=== PATIENT | male | born 1955 | race Caucasian/White ===

== ENCOUNTER 2019-06-06 15:24 | Emergency (ER) | payer OTHER ==
[2019-06-06] MEDS ORDERED: predniSONE 20 MG TAB ONE (18:14)
[2019-06-06] MEDS ORDERED: KETOROLAC 30 MG/ML INJ ONE (18:14)
[2019-06-06] MEDS ORDERED: ONDANSETRON 4 MG (ODT) TAB ONE (18:14)
[2019-06-06] MEDS ORDERED: MORPHINE 4 MG/ML SYR ONE (18:14)
--- NOTE | 2019-06-06 19:00 | ER ---
Nurse's Notes [facility] Name: Diana Collins Age: 63 yrs Sex: Male : 1955 Arrival Date: 06/06/2019 Time: 15:30 Bed 20 Private MD: Diagnosis: Other chronic pain;Pain in left knee;Pain in right knee;Pain in left shoulder;Pain in left elbow Presentation: 06/05 15:36 Chief complaint: Patient states: bilateral knee pain, R shoulder and L elbow pain that ss began months ago, has gotten much worse recently. Coronavirus screen: The patient has NOT traveled to a country currently being monitored by the [facility] within the last 14 days. Proceed with normal triage procedures. Ebola Screen: Patient denies exposure to infectious person. Patient denies travel to an Ebola-affected area in the 21 days before illness onset. Initial Sepsis Screen: Does the patient meet any 2 criteria? No. Patient's initial sepsis screen is negative. Does the patient have a suspected source of infection? No. Patient's initial sepsis screen is negative. Risk Assessment: Do you want to hurt yourself or someone else? Patient reports no desire to harm self or others. 15:36 Method Of Arrival: Ambulatory ss 15:36 Acuity: TVEIN 4 ss Historical: - Allergies: 15:38 Demerol; ss - Immunization history:: Adult Immunizations up to date. - Social history:: Smoking status: Patient denies any tobacco usage or history of. Screenin:30 Abuse screen: Denies threats or abuse. Denies injuries from another. Nutritional jl7 screening: No deficits noted. Tuberculosis screening: No symptoms or risk factors identified. Fall Risk Ambulatory Aid- Crutches/Cane/Walker (15 pts). Total Jones Fall Scale indicates No Risk (0-24 pts). Assessment: 17:30 General: Appears in no apparent distress. uncomfortable, Behavior is calm, cooperative, jl7 appropriate for age. Pain: Complains of pain in [place] knees, hips. Neuro: Level of Consciousness is awake, alert, obeys commands, Oriented to person, place, time, situation. Cardiovascular: Patient's skin is warm and dry. Respiratory: Airway is patent Respiratory effort is even, unlabored, Respiratory pattern is regular, symmetrical. Derm: Skin is pink, warm \T\ dry. Vital Signs: 15:36 BP 119 / 51; Pulse 86; Resp 16; Temp 97.5(TE); Pulse Ox 97% on R/A; Weight 156.49 kg; ss Height 6 ft. 2 in. (187.96 cm); Pain 7/10; 15:36 Body Mass Index 44.29 (156.49 kg, 187.96 cm) ED Course: 15:30 Patient arrived in ED. mr 15:37 Triage completed. ss 15:38 Arm band placed on right wrist. ss 16:49 Juan Chaudhary, SIVA is PHCP. pm1 16:49 Alonso Resendiz MD is Attending Physician. pm1 17:30 Patient has correct armband on for positive identification. Bed in low position. Call jl7 light in reach. Side rails up X 1. 18:06 Cynthia Gonzalez RN is Primary Nurse. jl7 19:17 No provider procedures requiring assistance completed. Patient did not have IV access jl7 during this emergency room visit. Administered Medications: 18:10 Drug: Ondansetron (Zofran) 4 mg Route: PO; jl7 19:15 Follow up: Response: No adverse reaction jl7 18:10 Drug: predniSONE 40 mg Route: PO; jl7 18:45 Follow up: Response: No adverse reaction; Pain is decreased jl7 18:12 Drug: morphine 4 mg Route: IM; Site: right deltoid; jl7 18:45 Follow up: Response: No adverse reaction; Pain is decreased jl7 18:15 Drug: TORadol 60 mg Route: IM; Site: left ventrogluteal; jl7 18:45 Follow up: Response: No adverse reaction; Pain is decreased jl7 Outcome: 18:59 Discharge ordered by . pm1 19:17 Discharged to home ambulatory. jl7 19:17 Condition: stable 19:17 Discharge instructions given to patient, Instructed on discharge instructions, follow up and referral plans. medication usage, Demonstrated understanding of instructions, follow-up care, medications, Prescriptions given X 1. 19:17 Patient left the ED. jl7 Signatures: Abril AlegreTila RN RN Juan Chaudhary, RECTIFYING OPERATOR RECTIFYING OPERATOR pm1 Cynthia Gonzalez RN RN jl7
--- NOTE | 2019-06-06 19:00 | EDPHYS ---
Physician Documentation [facility] Name: Diana Collins Age: 63 yrs Sex: Male : 1955 Arrival Date: 06/06/2019 Time: 15:30 Bed 20 Private MD: ED Physician Alonso Resendiz HPI: 06/05 17:59 This 63 yrs old Male presents to ER via Ambulatory with complaints of Left pm1 Shoulder Pain, Bilateral Knee Pain, Left Elbow pain. 17:59 The patient or guardian complains of pain, that is chronic. Onset: The symptoms/episode pm1 began/occurred Knee pain present for many years from arthritis, left shoulder present for many months that is due to torn rotator cuff that has not been repaired, and left elbow pain that is compensating for left torn rotator cuff while using walker. Modifying factors: the symptoms are alleviated by Aspirin, but PCP does not want him taking it, The symptoms are aggravated by movement, weight bearing. Associated signs and symptoms: Pertinent negatives: abdominal pain, chest pain, shortness of breath, numbness and tingling to extermities. Severity of symptoms: in the emergency department the symptoms are actually worse. Treatment prior to arrival includes: patient has hydrocodone at home but does not like to take it due to side effects such as constipation. He has not taken anything for his current pain. Historical: - Allergies: 15:38 Demerol; ss - Immunization history:: Adult Immunizations up to date. - Social history:: Smoking status: Patient denies any tobacco usage or history of. ROS: 17:59 Constitutional: Negative for fever, chills, and weight loss, Neck: Negative for injury, pm1 pain, and swelling, Cardiovascular: Negative for chest pain, palpitations, and edema, Respiratory: Negative for shortness of breath, cough, wheezing, and pleuritic chest pain, Abdomen/GI: Negative for abdominal pain, nausea, vomiting, diarrhea, and constipation, Back: Negative for injury and pain. 17:59 Skin: Negative for injury, rash, and discoloration, Neuro: Negative for headache, weakness, numbness, tingling, and seizure. 17:59 MS/extremity: Positive for pain, of the right knee, left knee, left elbow, and left shoulder, Negative for decreased range of motion, deformity. Exam: 17:59 Constitutional: This is a well developed, well nourished patient who is awake, alert, pm1 and in no acute distress. Head/Face: Normocephalic, atraumatic. Neck: Trachea midline, no thyromegaly or masses palpated, and no cervical lymphadenopathy. Supple, full range of motion without nuchal rigidity, or vertebral point tenderness. No Meningismus. Chest/axilla: Normal chest wall appearance and motion. Nontender with no deformity. No lesions are appreciated. Cardiovascular: Regular rate and rhythm with a normal S1 and S2. No gallops, murmurs, or rubs. Normal PMI, no JVD. No pulse deficits. Respiratory: Lungs have equal breath sounds bilaterally, clear to auscultation and percussion. No rales, rhonchi or wheezes noted. No increased work of breathing, no retractions or nasal flaring. Abdomen/GI: Soft, non-tender, with normal bowel sounds. No distension or tympany. No guarding or rebound. No evidence of tenderness throughout. Back: No spinal tenderness. No costovertebral tenderness. Full range of motion. Skin: Warm, dry with normal turgor. Normal color with no rashes, no lesions, and no evidence of cellulitis. 17:59 Musculoskeletal/extremity: Extremities: grossly normal except: noted in the anterior aspect of left shoulder: tenderness, noted in the left elbow: tenderness, noted in the left knee: tenderness, Noted in right knee: tenderness. 17:59 Neuro: Orientation: is normal, Motor: is normal, moves all fours. Vital Signs: 15:36 BP 119 / 51; Pulse 86; Resp 16; Temp 97.5(TE); Pulse Ox 97% on R/A; Weight 156.49 kg; ss Height 6 ft. 2 in. (187.96 cm); Pain 7/10; 15:36 Body Mass Index 44.29 (156.49 kg, 187.96 cm) ss MDM: 16:49 Patient medically screened. jarod 18:37 Data reviewed: vital signs. Data interpreted: Pulse oximetry: on room air is 97 %. pm1 Interpretation: normal. Counseling: I had a detailed discussion with the patient and/or guardian regarding: the historical points, exam findings, and any diagnostic results supporting the discharge/admit diagnosis, the need for outpatient follow up, to return to the emergency department if symptoms worsen or persist or if there are any questions or concerns that arise at home. Administered Medications: 18:10 Drug: Ondansetron (Zofran) 4 mg Route: PO; jl7 19:15 Follow up: Response: No adverse reaction jl7 18:10 Drug: predniSONE 40 mg Route: PO; jl7 18:45 Follow up: Response: No adverse reaction; Pain is decreased jl7 18:12 Drug: morphine 4 mg Route: IM; Site: right deltoid; jl7 18:45 Follow up: Response: No adverse reaction; Pain is decreased jl7 18:15 Drug: TORadol 60 mg Route: IM; Site: left ventrogluteal; jl7 18:45 Follow up: Response: No adverse reaction; Pain is decreased jl7 Disposition: 06/06/19 18:59 Discharged to Home. Impression: Other chronic pain, Pain in left knee, Pain in right knee, Pain in left shoulder, Pain in left elbow. - Condition is Stable. - Discharge Instructions: Joint Pain, Arthritis, Chronic Pain, Musculoskeletal Pain. - Prescriptions for Medrol (Esteban) 4 mg Oral Tablets, Dose Pack - take 1 tablet by ORAL route as directed - follow package instructions; 1 packet. - Medication Reconciliation Form, Thank You Letter, Antibiotic Education, Prescription Opioid Use form. - Follow up: Emergency Department; When: As needed; Reason: Worsening of condition. Follow up: Private Physician; When: 2 - 3 days; Reason: Recheck today's complaints, Continuance of care, Re-evaluation by your physician. - Problem is new. - Symptoms have improved. Addendum: 06/08/2019 09:24 Co-signature as Attending Physician, Alonso Resendiz MD I agree with the assessment and c clemons plan of care. Signatures: Alonso Resendiz MD MD cha Smirch, Shelby, RN RN ss Juan Chaudhary, SIVA NEWSP[employer]ER CLIPPER pm1 Cynthia Gonzalez RN RN jl7 Corrections: (The following items were deleted from the chart) 06/05 19:17 18:59 06/06/2019 18:59 Discharged to Home. Impression: Other chronic pain; Pain in left jl7 knee; Pain in right knee; Pain in left shoulder; Pain in left elbow. Condition is Stable. Forms are Medication Reconciliation Form, Thank You Letter, Antibiotic Education, Prescription Opioid Use. Follow up: Emergency Department; When: As needed; Reason: Worsening of condition. Follow up: Private Physician; When: 2 - 3 days; Reason: Recheck today's complaints, Continuance of care, Re-evaluation by your physician. Problem is new. Symptoms have improved. pm1
[2019-06-06 19:22] VITALS: BP 119/51; TEMP 97.5; O2SAT 97
== END 2019-06-06 19:17 | disposition home or self-care (01) ==
LOC: ER 15:24
DX: M25.512 Pain in left shoulder (principal); M25.562 Pain in left knee; M25.561 Pain in right knee; M25.522 Pain in left elbow; G89.29 Other chronic pain
CPT/HCPCS: 96372; 99283; J7512

== ENCOUNTER 2019-06-16 19:39 | Emergency (ER) | payer OTHER ==
--- NOTE | 2019-06-16 21:15 | RAD REPORT ---
EXAM DESCRIPTION: RAD - Knee Right 3 View - 06/16/2019 9:02 pm CLINICAL HISTORY: Right knee pain status post injury FINDINGS: No fracture or dislocation is seen. Marked osteoarthritis involves the knee consisting joint space narrowing, subchondral sclerosis and o steophytes. Moderate joint effusion suspected Mild lateral subluxation of the tibia on the femur
--- NOTE | 2019-06-16 21:25 | ER ---
Nurse's Notes [facility] Name: Diana Collins Age: 63 yrs Sex: Male : 1955 Arrival Date: 06/16/2019 Time: 19:42 Bed 19 Private MD: Diagnosis: Other specified arthritis, right knee Presentation: 06/15 19:58 Chief complaint: Patient states: that he was walking and twisted the wrong way and fc fell. Twisted knee right knee which is now swelling and he is concerned. Also concerned that his blood sugar has been high the past 3 mornings. Care prior to arrival: None. Mechanism of Injury: Fall from standing position. Trauma event details: Injury occurred in the [facility], Injury occurred: at home. Injury occurred: June 16, 2019. 19:58 Acuity: TEVIN 4 19:58 Method Of Arrival: Wheelchair 20:01 Coronavirus screen: Patient denies fever greater than 100.4F, cough, shortness of fc breath, or difficulty breathing. Ebola Screen: Patient negative for fever greater than or equal to 101.5 degrees Fahrenheit, and additional compatible Ebola Virus Disease symptoms Patient denies exposure to infectious person. Patient denies travel to an Ebola-affected area in the 21 days before illness onset. Risk Assessment: Do you want to hurt yourself or someone else? Patient reports no desire to harm self or others. 20:11 Initial Sepsis Screen: Does the patient meet any 2 criteria? HR > 90 bpm. No. Patient's fc initial sepsis screen is negative. Does the patient have a suspected source of infection? No. Patient's initial sepsis screen is negative. 20:59 Onset of symptoms was June 16, 2019 at 15:00. rv Historical: - Allergies: 20:09 Demerol; fc 20:09 asmacort; fc 20:09 Disalcid; fc - Home Meds: 20:09 allopurinol 300 mg Oral tab 1 tab once daily [Active]; lisinopril 5 mg Oral tab 1 tab fc once daily [Active]; atorvastatin 20 mg oral tab 1 tab once daily [Active]; cetirizine 10 mg oral tab 1 tab once daily [Active]; cholecalciferol (vitamin D3) 2,000 unit oral tab daily [Active]; - PMHx: 20:09 Hypertension; High Cholesterol; Elevated uric acid; Septic Arthritis; fc - PSHx: 20:09 left wrist; left foot; Knee surgery; fc - Immunization history: Last tetanus immunization: - up to date. - Social history:: Smoking status: Patient denies any tobacco usage or history of. Patient uses alcohol, on a daily basis. Patient/guardian denies using street drugs. Screenin:58 Abuse screen: Denies threats or abuse. Tuberculosis screening: No symptoms or risk fc factors identified. 21:00 Nutritional screening: No deficits noted. Fall Risk Fall in past 12 months (25 points). rv Secondary diagnosis (15 points) impaired mobility, No IV (0 pts). Ambulatory Aid- None/Bed Rest/Nurse Assist (0 pts). Gait- Impaired (20 pts.). Mental Status- Oriented to own ability (0 pts). Total Jones Fall Scale indicates Low Risk Score (25-44 pts). Fall prevention measures have been instituted. Side Rails Up X 2 Frequent Obs/Assesments occuring As available Patient and Family Educated on Fall Prevention Program and strategies. Assessment: 20:30 General: Appears in no apparent distress. comfortable, Behavior is calm, cooperative. rv 20:30 Pain: Complains of pain in right knee. Neuro: Level of Consciousness is awake, alert, rv obeys commands, Oriented to person, place, time, situation. Cardiovascular: Patient's skin is warm and dry. Respiratory: Airway is patent. Derm: Skin is intact. Musculoskeletal: Swelling absent Tenderness present in right knee Reports pain in right knee. 21:34 Reassessment: Patient appears in no apparent distress at this time. Patient and/or rv family updated on plan of care and expected duration. Pain level reassessed. Patient is alert, oriented x 3, equal unlabored respirations, skin warm/dry/pink. Vital Signs: 20:09 BP 128 / 83; Pulse 106; Resp 18; Temp 98.4(O); Pulse Ox 96% on R/A; Weight 156.49 kg (R); Height 6 ft. 2 in. (187.96 cm) (R); Pain 9/10; 20:09 Body Mass Index 44.29 (156.49 kg, 187.96 cm) [place] Coma Score: 19:58 Eye Response: spontaneous(4). Verbal Response: oriented(5). Motor Response: obeys fc commands(6). Total: 15. Trauma Score (Adult): 19:58 Eye Response: spontaneous(1); Verbal Response: oriented(1); Motor Response: obeys fc commands(2); Systolic BP: > 89 mm Hg(4); Respiratory Rate: 10 to 29 per min(4); [place] Score: 15; Trauma Score: 12 ED Course: 19:42 Patient arrived in ED. cl3 19:58 Patient maintains SpO2 saturation greater than 95% on room air. fc 20:00 Triage completed. fc 20:11 Arm band placed on Patient placed in an exam room, on a stretcher. fc 20:13 Sejal Oleary MD is Attending Physician. ma2 20:20 Domingo Sinha, RN is Primary Nurse. rv 20:58 No provider procedures requiring assistance completed. Patient did not have IV access rv during this emergency room visit. ice pack and minda wrap. 20:59 Patient has correct armband on for positive identification. Pulse ox on. NIBP on. rv 21:02 Knee Right 3 View XRAY In Process Unspecified. EDMS Administered Medications: No medications were administered Outcome: 21:22 Discharge ordered by . ma2 21:34 Discharged to home via wheelchair, with family. rv 21:34 Condition: good 21:34 Discharge instructions given to patient, Instructed on discharge instructions, follow up and referral plans. Demonstrated understanding of instructions, follow-up care. 21:35 Patient left the ED. rv Signatures: Dispatcher [employer] EDMS Kamryn Maxwell RN RN Sejal Oleary MD MD ma2 Vicente, Ronaldo, RN RN rv Lewis, Charde cl3
--- NOTE | 2019-06-16 21:26 | EDPHYS ---
Physician Documentation [facility] Name: Diana Collins Age: 63 yrs Sex: Male : 1955 Arrival Date: 06/16/2019 Time: 19:42 Bed 19 Private MD: ED Physician Sejal Oleary HPI: 06/15 20:52 This 63 yrs old Male presents to ER via Wheelchair with complaints of Fall ma2 Injury, Knee Injury. 20:52 Details of fall: The patient fell from an upright position. Onset: The symptoms/episode ma2 began/occurred suddenly, 2 hour(s) ago. Severity of symptoms: in the emergency department the symptoms have resolved, are actually worse. The patient has experienced similar episodes in the past. Historical: - Allergies: 20:09 Demerol; fc 20:09 asmacort; fc 20:09 Disalcid; fc - Home Meds: 20:09 allopurinol 300 mg Oral tab 1 tab once daily [Active]; lisinopril 5 mg Oral tab 1 tab fc once daily [Active]; atorvastatin 20 mg oral tab 1 tab once daily [Active]; cetirizine 10 mg oral tab 1 tab once daily [Active]; cholecalciferol (vitamin D3) 2,000 unit oral tab daily [Active]; - PMHx: 20:09 Hypertension; High Cholesterol; Elevated uric acid; Septic Arthritis; fc - PSHx: 20:09 left wrist; left foot; Knee surgery; fc - Immunization history: Last tetanus immunization: - up to date. - Social history:: Smoking status: Patient denies any tobacco usage or history of. Patient uses alcohol, on a daily basis. Patient/guardian denies using street drugs. ROS: 20:52 Constitutional: Negative for fever, chills, and weight loss. ma2 20:52 All other systems are negative. Exam: 20:52 Constitutional: This is a well developed, well nourished patient who is awake, alert, ma2 and in no acute distress. Head/Face: Normocephalic, atraumatic. Eyes: Pupils equal round and reactive to light, extra-ocular motions intact. Lids and lashes normal. Conjunctiva and sclera are non-icteric and not injected. Cornea within normal limits. Periorbital areas with no swelling, redness, or edema. ENT: Nares patent. No nasal discharge, no septal abnormalities noted. Tympanic membranes are normal and external auditory canals are clear. Oropharynx with no redness, swelling, or masses, exudates, or evidence of obstruction, uvula midline. Mucous membranes moist. Neck: Trachea midline, no thyromegaly or masses palpated, and no cervical lymphadenopathy. Supple, full range of motion without nuchal rigidity, or vertebral point tenderness. No Meningismus. Chest/axilla: Normal chest wall appearance and motion. Nontender with no deformity. No lesions are appreciated. Cardiovascular: Regular rate and rhythm with a normal S1 and S2. No gallops, murmurs, or rubs. Normal PMI, no JVD. No pulse deficits. Respiratory: Lungs have equal breath sounds bilaterally, clear to auscultation and percussion. No rales, rhonchi or wheezes noted. No increased work of breathing, no retractions or nasal flaring. Abdomen/GI: Soft, non-tender, with normal bowel sounds. No distension or tympany. No guarding or rebound. No evidence of tenderness throughout. MS/ Extremity: right knee is limited rom and mildly tender, no effusion redness or warmth, Pulses equal, no cyanosis. Neurovascular intact. Full, normal range of motion. Neuro: Awake and alert, GCS 15, oriented to person, place, time, and situation. Cranial nerves II-XII grossly intact. Motor strength 5/5 in all extremities. Sensory grossly intact. Cerebellar exam normal. Normal gait. Vital Signs: 20:09 BP 128 / 83; Pulse 106; Resp 18; Temp 98.4(O); Pulse Ox 96% on R/A; Weight 156.49 kg (R); Height 6 ft. 2 in. (187.96 cm) (R); Pain 9/10; 20:09 Body Mass Index 44.29 (156.49 kg, 187.96 cm) Davie Coma Score: 19:58 Eye Response: spontaneous(4). Verbal Response: oriented(5). Motor Response: obeys commands(6). Total: 15. Trauma Score (Adult): 19:58 Eye Response: spontaneous(1); Verbal Response: oriented(1); Motor Response: obeys commands(2); Systolic BP: > 89 mm Hg(4); Respiratory Rate: 10 to 29 per min(4); [place] Score: 15; Trauma Score: 12 MDM: 20:13 Patient medically screened. ma2 20:52 Differential diagnosis: contusion, fracture, sprain, strain. Data reviewed: vital ma2 signs, nurses notes. Counseling: I had a detailed discussion with the patient and/or guardian regarding: the historical points, exam findings, and any diagnostic results supporting the discharge/admit diagnosis, the presence of at least one elevated blood pressure reading (>120/80) during this emergency department visit, the need for outpatient follow up. 06/15 20:38 Order name: Knee Right 3 View XRAY ma2 Administered Medications: No medications were administered Disposition: 06/16/19 21:22 Discharged to Home. Impression: Other specified arthritis, right knee. - Condition is Stable. - Discharge Instructions: Knee Pain, [id number]. - Medication Reconciliation Form, Thank You Letter, Antibiotic Education, Prescription Opioid Use form. - Follow up: Private Physician; When: Tomorrow; Reason: If symptoms return. Signatures: Dispatcher [employer] EDMS Kamryn Maxwell RN RN Sejal Oleary MD MD ma2 Domingo Sinha RN RN rv Corrections: (The following items were deleted from the chart) 21:35 21:22 06/16/2019 21:22 Discharged to Home. Impression: Other specified arthritis, right rv knee. Condition is Stable. Forms are Medication Reconciliation Form, Thank You Letter, Antibiotic Education, Prescription Opioid Use. Follow up: Private Physician; When: Tomorrow; Reason: If symptoms return. ma2
[2019-06-16 21:55] VITALS: BP 128/83; TEMP 98.4; O2SAT 96
== END 2019-06-16 21:35 | disposition home or self-care (01) ==
LOC: ER 19:39
DX: M13.861 Other specified arthritis, right knee (principal); W19.XXXA Unspecified fall, initial encounter; Y93.9 Activity, unspecified; Y92.9 Unspecified place or not applicable; I10 Essential (primary) hypertension; E78.00 Pure hypercholesterolemia, unspecified; Z88.5 Allergy status to narcotic agent; Z88.8 Allergy status to other drugs, medicaments and biological substances
CPT/HCPCS: 99284

== ENCOUNTER 2024-03-19 13:22 | Emergency (ER) | payer OTHER ==
--- OUTSIDE RECORDS SUMMARY | 2024-03-19 13:26 | XMS REPORT | Continuity of Care Document ---
Author Name Unknown Address [address] [facility] [address] [place] [address] [facility] Address [address] [facility]. [address] [place] [address] Care Team Providers Care Engineering Manager Electronics Name Role Phone AB QUINTERO Primary Care Physici an Unavailable Pamella Biswas RN Attending Clinician UnavailTIMO Ding Attending Clinician Unavailable Reza Mcnally DO Attending Clinician [phone] Surinder Mckay MD Attending Clinician [phone] SURINDER MCKAY Admitting Clinician Unavailable Surinder Mckay MD Admitting Clinician [phone] Payers Payer Name Policy Type Policy Number Effective Date Expirati on Date Source [employer] LIFE [id number] 2021 00:00:00 Problems Condition Name Condition Details Condition Category Status Onset Date Resolution Date Last Treatment Date Treating Clinician Comments Source Morbid obesity with body mass index of 40.0-49.9 Morbid obesity with body mass index of 40.0-49.9 Disease Active 11-19 00:00: 00 [facility] Cellulitis and abscess of left leg Cellulitis and abscess of left leg Disease Active 11-19 00:00: 00 [facility] Allergies, Adverse Reactions, Alerts Allergy Name Allergy Type Status Severity Reaction(s) Onset Date Inactive Date Treating Clinician Comments Source MEPERIDI NE DRUG INGREDI Active ITCHING 11-19 00:00: 00 [facility] Meperidi ne Propensi ty to adverse reaction s Active Itching 11-19 00:00: 00 [facility] Social History Social Habit Start Date Stop Date Quantity Comments Source History of tobacco use Passive smoker [facility] History SDOH Transport Med 2021-11-22 00:00:00 2021-11-22 00:00:00 2 [facility] History SDOH Transport Non-Med 2021-11-22 00:00:00 2021-11-22 00:00:00 2 [facility] Exposure to SARS-CoV-2 (event) 2021-11-09 00:00:00 2021-11-19 21:26:00 Not sure [facility] Tobacco use and exposure 2021-11-19 00:00:00 2021-11-19 00:00:00 Smokeless tobacco non-user [facility] Education 2021-11-19 00:00:00 2021-11-19 00:00:00 17 [facility] Sex Assigned At 1955 00:00:00 1955 00:00:00 [facility] Smoking Status Start Date Stop Date Source Ex-smoker 2021-11-19 00:00:00 2021-11-19 00[facility]00[facility]00 [facility]ations Ordered Medication Name Filled Medication Name Start Date Stop Date Current Medication? Ordering Clinician Indication Dosage Frequency Signature (SIG) Comments Components Source docusate 100 mg capsule 11-22 00:00: 00 12-23 04:59 :00 No [id number] 100mg Take 1 capsule by mouth in the morning for 30 days. [facility] cetirizine 10 mg tablet 11-21 11:46: 45 Yes 10mg Take 10 mg by mouth in the morning. [facility] MULTIVITAMI N ORAL 11-21 11:46: 45 Yes Take by mouth. [facility] Cholecalcif jaci, Vitamin D3, 50 mcg (2,000 unit) tablet 11-21 11:46: 45 Yes Take by mouth. [facility] methocarbam oL 500 mg tablet 11-21 11:46: 45 Yes 500mg Take 500 mg by mouth 4 (four) times daily. [facility] clotrimazol e 1 % ointment 11-21 11:46: 45 Yes Apply to area(s). [facility] Ketoconazol e 1 % shampoo 11-21 11:46: 45 Yes Apply to area(s). [facility] nystatin 100,000 unit/gram powder 11-21 11:46: 45 Yes Apply to area(s) 2 (two) times daily. [facility] carboxymeth yl-gly-poly 80-PF 0.5-1-0.5 % Dpet 11-21 11:46: [address] in each eye[address] [facility] lidocaine 5 % (700 mg/patch) patch 11-21 11:46: 45 Yes 1{patch } Apply 1 Patch to area(s) once now. [facility] pregabalin 200 mg capsule 11-21 11:46: 45 Yes 200mg Take 200 mg by mouth in the morning and 200 mg in the evening. [facility] atorvastati n 20 mg tablet 11-21 11:46: 45 Yes 20mg Take 20 mg by mouth at bedtime. [facility] metFORMIN 1,000 mg tablet 11-21 11:46: 45 Yes 500mg Take 500 mg by mouth daily with breakfast. [facility] tamsulosin 0.4 mg 24 hr capsule 11-21 11:46: 45 Yes Take by mouth daily. [facility] Omeprazole 20 mg tablet 11-21 11:46: 45 Yes Take by mouth. [facility] triamcinolo ne 0.1 % lotion 11-21 11:46: 45 Yes Apply to area(s). [facility] aspirin (ASPIR-81) 81 mg EC tablet 11-21 11:46: 45 Yes 81mg Take 81 mg by mouth in the morning. [facility] naproxen 500 mg tablet 11-21 11:46: 45 Yes 500mg Take 500 mg by mouth in the morning and 500 mg in the evening. Take with meals. [facility] diclofenac sodium/caps aicin (DICLOFENAC -CAPSAICIN TOPICAL) 11-21 11:46: 45 Yes Apply to area(s). [facility] allopurinoL 300 mg tablet 11-21 11:46: 45 Yes 300mg Take 300 mg by mouth in the morning. [facility] cephALEXin 500 mg capsule 11-21 00:00: 00 Yes [id number] 500mg Take 1 capsule by mouth 4 (four) times daily. [facility] Encounters Start Date/Time End Date/Time Encounter Type Admission Type Attending [facility] Care Facility Care Department Encounter ID Source 2021-11-22 00:00:00 2021-11-22 00:00:00 Transition of Care Pamella Biswas PLAS[facility] [id number] [facility] 2021-11-19 20:17:00 2021-11-21 11:45:00 Inpatient U [facility] [id number] [facility] 2021-11-19 20:17:00 2021-11-21 11:45:00 Hospital Encounter Reza Mcnally Santhosh Lakhani, Adnan [facility] [id number] [facility]
--- NOTE | 2024-03-19 15:40 | RAD REPORT ---
EXAM: CT PELVIS WITHOUT CONTRAST HISTORY: fall COMPARISON: Recent plain radiographs. TECHNIQUE: Multiple contiguous axial images were obtained and a CT of the pelvis with IV contrast. Sa gittal and coronal reformats were performed. One or more of the following dose reduction techniques were used: Automated exposure control, adjustment of the mA and/or kV according to patient size, and/ or iterative reconstruction. FINDINGS: No pelvic fractures are seen. No fracture of either proximal femur is seen. Significant low er lumbar degenerative spondylosis. Bilateral spondylolysis is present L5-S1. The visualized intrapelvic structures are unremarkable. The soft tissues surrounding the pelvis are unremarkable. IMPRESSION: No fracture, dislocation or AVN pattern observed. If pain persists or progresses, MRI henrietta ging follow-up would be recommended.
--- NOTE | 2024-03-19 15:44 | RAD REPORT ---
EXAMINATION: CT LUMBAR SPINE WITHOUT CONTRAST CLINICAL INDICATION: Male, 68 years old. PAIN TECHNIQUE: Axial CT images were obtained through the lumbar spine in soft tissue and bone windows wit hout intravenous contrast. Coronal and Sagittal reformatted images were created from the data set. One or more of the following dose reduction techniques were used: Automated exposure control, adjustm ent of the mA and/ or kV according to patient size, and/or iterative reconstruction. Unless otherwise specified, incidental findings do not require dedicated imaging follow-up. COMPARISON: No prior exam. FINDINGS: For purposes of this dictation, it is assumed that there are 5 non rib-bearing lumbar type vertebrae, and the most caudal fully segmented lumbar vertebra is labeled L5. ALIGNMENT: The lumbar spine demonstrates normal alignment without scoliosis or spondylolisthesis. BONES: No significant soft tissue abnormalities. No aggressive osseous lesions. DISCS: There is advanced multilevel vacuum disc degeneration and spondylosis. LEVELS: There is probably severe stenosis centrally at multiple levels most notable at L2-3. SOFT TISSUE: Small stone left kidney. IMPRESSION: No acute lumbar spine abnormalities. Severe multilevel spondylosis of the lumbar spine.
[2024-03-19] MEDS ORDERED: HYDROCODONE/APAP 10/325 TAB ONE (15:45)
--- NOTE | 2024-03-19 16:10 | RAD REPORT ---
EXAMINATION: XR RIGHT FEMUR CLINICAL INDICATION: . PAIN RIGHT TECHNIQUE: Multiple views of the right femur were obtained. COMPARISON: No prior exam. FINDINGS: There is severe right knee osteoarthritis with [id number] and heterotopic bone formation. No fracture is seen. No dislocation evident.
--- NOTE | 2024-03-19 16:13 | RAD REPORT ---
EXAMINATION: XR RIGHT FOOT CLINICAL INDICATION: Male, 68 years old. PAIN TECHNIQUE: Multiple views of the right foot were obtained. COMPARISON: No prior exam. FINDINGS: Advanced right midfoot degenerative arthritic changes are present. No acute fracture or sub luxation. Small calcaneal spurs.
--- NOTE | 2024-03-19 16:13 | RAD REPORT ---
EXAMINATION: XR RIGHT TIBIA AND FIBULA CLINICAL INDICATION: PAIN TECHNIQUE:Two view radiograph of the right tibia and fibula were obtained. COMPARISON: No prior exam. FINDINGS: No acute fracture or dislocation seen. Advanced arthritic changes in the right knee as wel l as the right midfoot. Small calcaneal spurs.
--- NOTE | 2024-03-19 17:49 | ER ---
Nurse's Notes [facility] Name: Diana Collins Age: 68 yrs Sex: Male : 1955 Arrival Date: 03/19/2024 Time: 13:22 Bed 24 Private MD: Diagnosis: Low back pain;Radiculopathy, lumbosacral region;Fall on same level, unspecified;Pain in right foot;Pain in right knee;Pain in right hip Presentation: 03/19 14:26 Chief complaint: Patient states: RIGHT LEG PAIN ONSET 2 DAYS AGO. PT STATES THAT THE cm10 PAIN STARTS AT THE HIP AND RADIATES TO FOOT. PT REPORTS HAVING A FALL THIS WEEK. Coronavirus screen: Client denies travel out of the [place] in the last 14 days. Ebola Screen: Patient denies travel to an Ebola-affected area in the 21 days before illness onset. Initial Sepsis Screen: Does the patient meet any 2 criteria? No. Patient's initial sepsis screen is negative. Does the patient have a suspected source of infection? No. Patient's initial sepsis screen is negative. Risk Assessment: Do you want to hurt yourself or someone else? Patient reports no desire to harm self or others. Onset of symptoms was March 19, 2024. 14:26 Method Of Arrival: Wheelchair cm10 14:26 Acuity: TEVIN 4 cm10 Triage Assessment: 14:29 General: Appears in no apparent distress. uncomfortable, Behavior is calm, cooperative. cm10 Neuro: No deficits noted. Level of Consciousness is awake, alert, obeys commands, Oriented to person, place, time, situation, Appropriate for age. Respiratory: No deficits noted. Airway is patent Respiratory effort is even, unlabored, Respiratory pattern is regular, symmetrical. Historical: - Allergies: 14:27 asmacort; cm10 14:27 Demerol; cm10 14:27 Disalcid; cm10 - PMHx: 14:27 Elevated uric acid; High Cholesterol; Hypertension; Septic Arthritis; Diabetes cm10 mellitus; DEGENERATIVE JOINT DISEASE; - Immunization history:: Adult Immunizations up to date. - Infectious Disease History:: Denies. - Social history:: Smoking status: Patient denies any tobacco usage or history of. Screenin:45 [facility] ED Fall Risk Assessment (Adult) History of falling in the last 3 months, jb4 including since admission No falls in past 3 months (0 pts) Confusion or Disorientation No (0 pts) Intoxicated or Sedated No (0 pts) Impaired Gait No (0 pts) Mobility Assist Device Used No (0 pt) Altered Elimination No (0 pt) Score/Fall Risk Level 0 - 2 = Low Risk Oriented to surroundings, Maintained a safe environment. Abuse screen: Denies threats or abuse. Nutritional screening: No deficits noted. Tuberculosis screening: No symptoms or risk factors identified. Assessment: 15:45 General: Appears in no apparent distress. comfortable, Behavior is calm, cooperative, jb4 appropriate for age. Pain: Complains of pain in right leg Pain does not radiate. Pain currently is 5 out of 10 on a pain scale. Neuro: Level of Consciousness is awake, alert, obeys commands, Oriented to person, place, time, situation. Cardiovascular: Patient's skin is warm and dry. Respiratory: Airway is patent Respiratory effort is even, unlabored, Respiratory pattern is regular, symmetrical. Derm: Skin is intact, Skin is pink, warm \T\ dry. Musculoskeletal: Circulation, motion, and sensation intact. Range of motion: intact in all extremities. 18:17 Reassessment: Patient appears in no apparent distress at this time. Patient and/or jb4 family updated on plan of care and expected duration. Pain level reassessed. Patient is alert, oriented x 3, equal unlabored respirations, skin warm/dry/pink. Patient states feeling better. Vital Signs: 14:26 BP 157 / 88; Pulse 76; Resp 16; Temp 97.9(TE); Pulse Ox 100% on R/A; Weight 156.49 kg; cm10 Height 6 ft. 2 in. ; Pain 5/10; 14:26 Body Mass Index 44.29 (156.49 kg, 187.96 cm) cm10 14:26 Pain Scale: Adult cm10 ED Course: 13:28 Patient arrived in ED. ra3 14:01 Alonso Manning PA is PHCP. cp 14:01 Akila Anderson MD is Attending Physician. cp 14:27 Triage completed. cm10 14:27 Arm band placed on right wrist. Patient placed in waiting room. cm10 15:12 CT Lumbar Spine Wo Con In Process Unspecified. EDMS 15:12 CT Pelvis wo Cont In Process Unspecified. EDMS 15:30 XRAY Femur RIGHT In Process Unspecified. EDMS 15:30 XRAY Tib Fib RIGHT In Process Unspecified. EDMS 15:30 XRAY Foot RIGHT 3 View In Process Unspecified. EDMS 15:45 Patient has correct armband on for positive identification. Bed in low position. Call jb4 light in reach. Side rails up X 1. Provided Education on: plan of care. 15:45 No provider procedures requiring assistance completed. Patient did not have IV access jb4 during this emergency room visit. 15:59 Migel Hameed, RN is Primary Nurse. jb4 Administered Medications: 15:50 Drug: HYDROcodone-acetaminophen PO 10 mg-325 mg 1 tabs PO once Route: PO; jb4 18:17 Follow up: Response: No adverse reaction; Marked relief of symptoms; Pain is decreased jb4 Medication: 15:45 VIS not applicable for this client. jb4 Outcome: 17:49 Discharge ordered by . cp 18:17 Discharged to home via wheelchair, with family, jb4 18:17 Condition: stable 18:17 Discharge instructions given to patient, Instructed on discharge instructions, follow up and referral plans. Demonstrated understanding of instructions, follow-up care, 18:18 Patient left the ED. jb4 Signatures: Dispatcher [employer] EDMS Alonso Manning PA PA cp Migel Hameed, RN RN jb4 Tiffanie Leslie RN RN cm10 Samia Chatman ra3 Corrections: (The following items were deleted from the chart) 14:29 14:26 Chief complaint: Patient states: RIGHT LEG PAIN ONSET 2 DAYS AGO. PT STATES THAT cm10 THE PAIN STARTS AT THE HIP AND RADIATES TO FOOT. cm10 16:06 15:45 Pain: Complains of pain in left leg Pain does not radiate. Pain currently is 5 jb4 out of 10 on a pain scale. jb4
--- NOTE | 2024-03-19 17:50 | EDPHYS ---
Physician Documentation [facility] Name: Diana Collins Age: 68 yrs Sex: Male : 1955 Arrival Date: 03/19/2024 Time: 13:22 Bed 24 Private MD: ED Physician Akila Anderson HPI: 03/19 14:40 This 68 yrs old Male presents to ER via Wheelchair with complaints of Right hip to foot cp pain. 14:40 The patient presents with pain, that is acute. cp 14:40 The complaints affect the right foot and right leg. Context: resulted from an unknown cp cause, the patient can partially bear weight, must have assistance, uses wheelchair and able to transfer from chair. Associated signs and symptoms: Pertinent positives: calf tenderness, numbness, weakness, chronic back pain, Pertinent negatives fever, rash, warmth. Treatment prior to arrival includes: no previous treatment. Has been prescribed methocarbamol and pregabalin for pain but has been off the pregabalin after running out. Historical: - Allergies: 14:27 asmacort; cm10 14:27 Demerol; cm10 14:27 Disalcid; cm10 - PMHx: 14:27 Elevated uric acid; High Cholesterol; Hypertension; Septic Arthritis; Diabetes cm10 mellitus; DEGENERATIVE JOINT DISEASE; - Immunization history:: Adult Immunizations up to date. - Infectious Disease History:: Denies. - Social history:: Smoking status: Patient denies any tobacco usage or history of. ROS: 14:45 Constitutional: Negative for body aches, chills, fever, poor PO intake, cp 14:45 Eyes: Negative for injury, pain, redness, and discharge, cp 14:45 Cardiovascular: Negative for chest pain, 14:45 Respiratory: Negative for cough, shortness of breath, wheezing, 14:45 Abdomen/GI: Negative for abdominal pain, vomiting, diarrhea, constipation, bowel incontinence, 14:45 Back: Positive for pain at rest, pain with movement, 14:45 : Negative for urinary symptoms, flank pain, bladder incontinence, testicular pain 14:45 MS/extremity: Positive for pain, of the right leg, 14:45 Neuro: Positive for numbness, weakness, of the right leg, 14:45 All other systems are negative, Exam: 14:47 Constitutional: The patient appears in no acute distress, alert, awake, non-toxic, well cp developed, well nourished, obese, uncomfortable, seated in wheelchair 14:47 Head/Face: Normocephalic, atraumatic. cp 14:47 Eyes: Periorbital structures: appear normal, Conjunctiva: normal, no exudate, no injection, Sclera: no appreciated abnormality, Lids and lashes: appear normal, bilaterally, 14:47 ENT: External ear(s): are unremarkable, Nose: is normal, Mouth: Lips: moist, Oral mucosa: moist, Posterior pharynx: Airway: no evidence of obstruction, patent, 14:47 Chest/axilla: Inspection: normal, 14:47 Cardiovascular: Rate: normal, Rhythm: regular, Edema: ankle edema, that is mild, 14:47 Respiratory: the patient does not display signs of respiratory distress, Respirations: normal, no use of accessory muscles, no retractions, labored breathing, is not present, Breath sounds: are clear throughout, no decreased breath sounds, 14:47 Abdomen/GI: Inspection: obese Palpation: abdomen is soft and non-tender, in all quadrants, 14:47 Back: pain, that is moderate, of the low back area and mid back area, 14:47 Musculoskeletal/extremity: Extremities: noted in the right leg: pain, There is no evidence of erythema, gross swelling, deformity, 14:47 Neuro: Sensation: light touch is decreased in the right foot and right leg, Gait: unable to assess, the patient is nonambulatory, Vital Signs: 14:26 BP 157 / 88; Pulse 76; Resp 16; Temp 97.9(TE); Pulse Ox 100% on R/A; Weight 156.49 kg; cm10 Height 6 ft. 2 in. ; Pain 5/10; 14:26 Body Mass Index 44.29 (156.49 kg, 187.96 cm) cm10 14:26 Pain Scale: Adult cm10 MDM: 14:33 Medical Screening Exam initiated cp 17:48 Data reviewed: vital signs, nurses notes, radiologic studies, CT scan, plain films. 17:48 Differential diagnosis: dislocation, closed fracture, spinal stenosis, dvt, chronic cp pain. I considered the following discharge prescriptions or medication management in the emergency department Medications were administered in the Emergency Department. See MAR. Care significantly affected by the following chronic conditions: Diabetes, Hypertension, Obesity. Counseling: I had a detailed discussion with the patient and/or guardian regarding the historical points, exam findings, and any diagnostic results supporting the discharge/admit diagnosis, radiology results, the need for outpatient follow up, a neurosurgeon, to return to the emergency department if symptoms worsen or persist or if there are any questions or concerns that arise at home. Response to treatment: the patient's symptoms have mildly improved after treatment, and as a result, I will discharge patient. 03/19 14:35 Order name: CT Lumbar Spine Wo Con; Complete Time: 17:30 cp 03/19 17:31 Interpretation: Report reviewed. cp 03/19 14:35 Order name: CT Pelvis wo Cont; Complete Time: 17:30 cp 03/19 17:31 Interpretation: Report reviewed. cp 03/19 14:35 Order name: XRAY Femur RIGHT; Complete Time: 17:30 cp 03/19 17:32 Interpretation: Report reviewed. 03/19 14:35 Order name: XRAY Tib Fib RIGHT; Complete Time: 17:30 cp 03/19 17:32 Interpretation: Report reviewed. cp 03/19 14:35 Order name: XRAY Foot RIGHT 3 View; Complete Time: 17:30 cp Administered Medications: 15:50 Drug: HYDROcodone-acetaminophen PO 10 mg-325 mg 1 tabs PO once Route: PO; jb4 18:17 Follow up: Response: No adverse reaction; Marked relief of symptoms; Pain is decreased jb4 Disposition Summary: 03/19/24 17:49 Discharge Ordered Notes: Location: Home cp Problem: chronic cp Symptoms: have improved cp Condition: Stable cp Diagnosis - Low back pain cp - Radiculopathy, lumbosacral region cp - Fall on same level, unspecified cp - Pain in right foot cp - Pain in right knee cp - Pain in right hip cp Followup: cp - With: Private Physician - When: 2 - 3 days - Reason: Recheck today's complaints Discharge Instructions: - Discharge Summary Sheet cp - Chronic Back Pain cp - Hip Pain cp - Foot Pain cp - Chronic Knee Pain, Adult cp Forms: - Medication Reconciliation Form cp - Antibiotic Education cp - Prescription Opioid Use cp - Patient Portal Instructions cp - Leadership Thank You Letter cp Addendum: 03/20/2024 23:53 Co-signature as Attending Physician, Akila Anderson MD I reviewed the patient's care s d2 provided by the Advanced Practice Provider and agree with the diagnosis and treatment plan. Signatures: Dispatcher [employer] EDMS Alonso Manning PA PA cp Bryson, James, RN RN jb4 Akila Anderson MD MD sd2 Tiffanie Leslie RN RN cm10 Corrections: (The following items were deleted from the chart) 03/19 14:36 14:36 Femur Right+[email or web address] ordered. EDMO EDMS
[2024-03-19 18:26] VITALS: BP 157/88; TEMP 97.9; O2SAT 100
== END 2024-03-19 18:18 | disposition home or self-care (01) ==
LOC: ER 13:22
DX: M54.17 Radiculopathy, lumbosacral region (principal); M79.671 Pain in right foot; M25.561 Pain in right knee; M25.551 Pain in right hip; W18.30XA Fall on same level, unspecified, initial encounter
CPT/HCPCS: 72131; 72192; 99283

== ENCOUNTER 2025-01-16 08:19 | Emergency (ER) | payer OTHER ==
[2025-01-16] MEDS ORDERED: NA CHLORIDE 0.9% 1,000 ML ONE (08:36)
[2025-01-16 09:31] LABS: Absolute Lymphocytes (CBC) 0.7 K/uL (0.7-4.9); Hematocrit 50.4 % (39.6-49.0); Hemoglobin 16.4 g/dL (13.6-17.9); MCH 27.6 pg (27.0-35.0); MCHC 32.6 g/dL (32.0-36.0); MCV 84.7 fL (80-100); MPV 8.5 fL (7.6-11.3); Nucleated RBC Absolute Count 0.0 (0-0); Nucleated Red Blood Cells % 0.1 % (0-0); RBC Red Blood Cell Count 5.95 M/uL (4.33-5.43); White Blood Count 16.40 thou/uL (4.3-10.9)
[2025-01-16 09:41] LABS: PT Prothrombin Time 14.1 SECONDS (10-13.0); PTT, Activated Partial Thromb 31.1 SECONDS (27.2-37.4); Protime INR 1.26
[2025-01-16 09:48] LABS: Sqamous Epithelial None Seen /HPF (None Seen); Urine Crystals Unidentified Many /HPF (None Seen); Urine Culture Reflex Order REFLEXED; Urine Microscopic Reflex YN ORDER UMIC; Urine WBC Clump Many /HPF (None Seen); Urine Yeast (Budding) Many /HPF (None Seen)
[2025-01-16 09:54] LABS: ALT/SGPT 30.0 U/L (16-61); AST/SGOT 14.0 U/L (15-37); Albumin 3.2 g/dL (3.4-5.0); Albumin/Globulin Ratio 0.7 (1.1-1.8); Alkaline Phosphatase 135.0 U/L (45-117); Anion Gap 13.0 mEq/L (5.0-15.0); BUN Blood Urea Nitrogen 31.0 mg/dL (7-18); Globulin 4.4 g/dL (2.3-3.5); Glucose Level 171.0 mg/dL (74-106); NT PRO-BNP 274.0 pg/mL (<125); Potassium 5.0 mEq/L (3.5-5.1); Troponin High Sensitivity 5.4 pg/mL (<58.9)
[2025-01-16] MEDS ORDERED: CEFTRIAXONE 1000 MG/VIAL ONE (10:23)
[2025-01-16 10:25] LABS: White Blood Cell Scan OK (OK)
[2025-01-16 10:26] LABS: Anisocytosis SLIGHT; Blood Morphology Comment NOTED (NOT SEEN); Burr Cells FEW; Ovalocytes SLIGHT; Poikilocytosis SLIGHT; Polychromasia SLIGHT
--- NOTE | 2025-01-16 10:44 | RAD REPORT ---
EXAMINATION: CT ABDOMEN AND PELVIS WITH CONTRAST CLINICAL INDICATION: Abdominal pain TECHNIQUE: CT abdomen and pelvis was performed, after the administration of 100 cc Isovue-300.. Sagit gina and coronal reconstructions were obtained. One or more of the following dose reduction techniques were used: Automated exposure control, adjustment of the mA and kV according to patient si ze, and iterative reconstruction. Unless otherwise specified, incidental findings do not require dedicated imaging follow-up. [id number]. Oral contrast was not given which limits evaluation of bowel and appendix. COMPARISON: .None FINDINGS: Areas of subsegmental atelectasis within the lung bases Equivocal small gallstone. No gallbladder wall thickening. Liver, spleen, pancreas and adrenals unremarkable 1 cm simple cyst left kidney. No follow-up recommended. 3 mm calculus proximal left ureter. Mild left hydronephrosis. Kingston catheter within the bladder. Trace amount of pelvic ascites and presacral edema. No evidence of diverticulitis. Normal appendix Moderate amount of stool throughout the colon. Spondylosis lumbar spine results in spinal stenosis : IMPRESSION: 3 mm calculus proximal left ureter with mild left hydronephrosis. Equivocal small gallstone. No gallbladder wall thickening.
--- NOTE | 2025-01-16 10:45 | RAD REPORT ---
Procedure: Chest Single View HISTORY: Shortness of breath COMPARISON: none FINDINGS: Areas of subsegmental atelectasis within the lung bases right greater than left. No significant pleural effusion noted. The heart is normal size.
--- NOTE | 2025-01-16 10:56 | ER ---
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 Coronavirus screen: At this time, the client does not indicate any symptoms associated with coronavirus-19. Ebola Screen: No symptoms or risks identified at this time. Initial Sepsis Screen: Does the patient meet any 2 criteria? No. Patient's initial sepsis screen is negative. Does the patient have a suspected source of infection? No. Patient's initial sepsis screen is negative. Risk Assessment: Do you want to hurt yourself or someone else? Patient reports no desire to harm self or others. Onset of symptoms was January 16, 2025. 08:22 Method Of Arrival: EMS: [facility] 08:22 Acuity: TEVIN 3 ph Triage Assessment: 08:25 General: Appears in no apparent distress. Behavior is calm, cooperative. Pain: Denies ph pain. Neuro: Level of Consciousness is awake, alert, obeys commands, Oriented to person, place, time, situation. Cardiovascular: Capillary refill < 3 seconds in bilateral fingers Patient's skin is warm and dry. : [place] in place to gravity drainage. Derm: Skin is pink, warm \T\ dry. Musculoskeletal: Range of motion: limited in legs. Historical: - Allergies: 08:24 asmacort; ph 08:24 Demerol; ph 08:24 Disalcid; ph - PMHx: 08:24 degenerative joint disease; diabetes mellitus; Elevated uric acid; High Cholesterol; ph Hypertension; Septic Arthritis; spinal cord injury (Septic Arthritis); - Immunization history:: Adult Immunizations unknown. - Infectious Disease History:: Denies. - Social history:: Smoking status: unknown. - Family history:: not pertinent. - Hospitalizations: : No recent hospitalization is reported. Screenin:42 [facility] ED Fall Risk Assessment (Adult) History of falling in the last 3 months, ph including since admission No falls in past 3 months (0 pts) Confusion or Disorientation No (0 pts) Intoxicated or Sedated No (0 pts) Impaired Gait Yes (1 pt) Mobility Assist Device Used Yes (1 pt) Altered Elimination Yes (1 pt) Score/Fall Risk Level 3 or more points = High Risk Oriented to surroundings, Maintained a safe environment, Hourly rounding (assess needs \T\ fall precautionary measures) done, Used ambulatory aids as needed (educated on \T\ assisted with). Abuse screen: Denies threats or abuse. Denies injuries from another. Nutritional screening: No deficits noted. Tuberculosis screening: No symptoms or risk factors identified. Assessment: 08:30 General: SEE TRIAGE NOTE. bp 10:30 Reassessment: No changes from previously documented assessment. Patient is alert, bp oriented x 3, equal unlabored respirations, skin warm/dry/pink. 13:21 Reassessment: REPORT TO COLIN SALINAS [facility]. bp 13:55 Reassessment: Patient appears in no apparent distress at this time. Patient is alert, ph oriented x 3, equal unlabored respirations, skin warm/dry/pink. [facility] at bedside, report given to Matt EMT-P, pt transferred to [place]. Vital Signs: 08:22 BP 140 / 100; Pulse 105; Resp 20; Temp 97.3; Pulse Ox 94% ; Weight 163.29 kg; Height 6 ph ft. 2 in. ; 09:26 BP 146 / 92; Pulse 109; Resp 20; Temp 98.4; Pulse Ox 92% on R/A; ph 10:23 BP 124 / 94; Pulse 100; Resp 20; Pulse Ox 97% on R/A; ph 12:00 BP 149 / 93; Pulse 95; Resp 20; Temp 98.2; Pulse Ox 94% on R/A; ph 13:21 BP 158 / 100; Pulse 97; Resp 15; Pulse Ox 93% ; bp 08:22 Body Mass Index 46.22 (163.29 kg, 187.96 cm) ph ED Course: 08:22 Patient arrived in ED. ph 08:22 Wilder Gardner MD is Attending Physician. rn 08:24 Triage completed. ph 08:25 Arm band placed on Patient placed in an exam room, on a stretcher, on pulse oximetry. ph 08:29 Mireya Pedro, BRAD is Primary Nurse. at6 08:30 Aiden Verdugo, RN is Primary Nurse. bp 08:45 [place] cath inserted, using sterile technique, 16 Fr., by nm, balloon inflated, to bp gravity drainage. 08:52 Chest Single View XRAY In Process Unspecified. EDMS 09:15 Inserted saline lock: 20 gauge in right antecubital area, using aseptic technique. ss Blood collected. Flushed with 10 mL NS. 09:23 BNP Sent. ss 09:23 Blood Culture Adult (2) Sent. ss 09:23 CBC with Diff Sent. ss 09:23 CMP Sent. ss 09:24 Lactate w/ 2H reflex if indic. Sent. ss 09:24 Protime (+inr) Sent. ss 09:24 Ptt, Activated Sent. ss 09:24 Troponin HS Sent. ss 09:27 Patient has correct armband on for positive identification. Bed in low position. Call ph light in reach. Side rails up X2. cdc associate on. Pulse ox on. NIBP on. Door closed. Noise minimized. Warm blanket given. Pillow given. 09:37 UA Rfx Renato Cult if indicated Sent. cc6 09:37 BNP Sent. cc6 09:37 Blood Culture Adult (2) Sent. cc6 09:38 CBC with Diff Sent. cc6 09:38 CMP Sent. cc6 09:38 Lactate w/ 2H reflex if indic. Sent. cc6 09:38 Protime (+inr) Sent. cc6 09:38 Ptt, Activated Sent. cc6 09:38 Troponin HS Sent. cc6 10:29 CT Abd/Pelvis - IV Contrast Only In Process Unspecified. EDMS 11:05 1105 [facility]. will fax clinical's to [phone]. sp 13:[address] Bird Monroy accepted pt. 1304 Admin approval by Sam Daniel to the ER report # sp [phone] fax [phone]. 13:22 No provider procedures requiring assistance completed. Patient transferred, IV remains bp in place. 13:38 called [facility] talked to Spencer. sp Administered Medications: 09:20 Drug: NS 0.9% IV 1000 ml IV at 1000 ml once; to be given as a bolus over 60 minutes cc6 Route: IV; Rate: 1000 ml; Site: right antecubital; 10:30 Follow up: Response: No adverse reaction; IV Status: Completed infusion; IV Intake: ph 1000ml 10:25 Drug: Rocephin IV 1 grams IV at calculated rate once; Given slow IV push per pharmacy ph instructions Route: IV; Rate: calculated rate; Site: right antecubital; 11:23 Follow up: Response: No adverse reaction; IV Status: Completed infusion ph 11:22 Drug: Flomax PO 0.4 mg PO once Route: PO; ph 11:23 Follow up: Response: No adverse reaction ph 11:22 Drug: Magnesium Sulfate IVPB 1 grams IVPB once over 1 hrs Route: IVPB; Infused Over: 1 ph hrs; Site: right antecubital; 13:22 Follow up: IV Status: Completed infusion bp Medication: 08:42 VIS not applicable for this client. ph Intake: 10:30 IV: 1000ml; Total: 1000ml. ph 13:56 IV: 1000ml; Total: 2000ml. ph Output: 13:56 Urine: 2400ml ([place]); Total: 2400ml. ph Outcome: 10:56 ER care complete, transfer ordered by . rn 13:22 Transferred by ground EMS to [facility] Transfer form completed. bp 13:22 Condition: stable 13:22 Instructed on the need for transfer, 13:57 Patient left the ED. ph Signatures: Dispatcher [employer] EDMS Vicky Muro Roman, MD MD rn Blanchard, Shelby, RN RN ss Adenike Adams RN RN Aiden Verdugo RN RN bp Cardoza, Cassandra, RN RN cc6 Mireya Pedro RN RN at6
--- NOTE | 2025-01-16 10:56 | EDPHYS ---
Physician Documentation [facility] Name: Diana Collins Age: 69 yrs Sex: Male : 1955 Arrival Date: 01/16/2025 Time: 08:19 Bed 7 Private MD: ED Physician Wilder Gardner HPI: 01/16 08:40 This 69 yrs old Male presents to ER via EMS with complaints of Problem With Urinary rn Catheter. 08:40 Patient reports decreased urinary production or output. Does not feel like catheter is rn blocked. Patient states flushes catheter nightly and is getting back what he puts in. No fever or chills but reports generalized malaise. Reports abdominal pain with nausea but no vomiting. No diarrhea. No blood in stool. Patient has indwelling [place] catheter due to spinal stenosis and urinary incontinence, has had it in for months.. Historical: - Allergies: 08:24 asmacort; ph 08:24 Demerol; ph 08:24 Disalcid; ph - PMHx: 08:24 degenerative joint disease; diabetes mellitus; Elevated uric acid; High Cholesterol; ph Hypertension; Septic Arthritis; spinal cord injury (Septic Arthritis); - Immunization history:: Adult Immunizations unknown. - Infectious Disease History:: Denies. - Social history:: Smoking status: unknown. - Family history:: not pertinent. - Hospitalizations: : No recent hospitalization is reported. ROS: 08:40 Constitutional: Negative for fever, chills, and weight loss, Cardiovascular: Negative rn for chest pain, palpitations, and edema, Respiratory: Positive for mild dyspnea Abdomen/GI: Mild abdominal discomfort with nausea : Reports decreased urinary output Neuro: Positive for generalized weakness and malaise Exam: 08:40 Constitutional: Overweight male, no acute distress Head/Face: Normocephalic, rn atraumatic. ENT: Dry mucous membranes with peanut butter stuck on tongue Cardiovascular: Tachycardic, regular Respiratory: Mild tachypnea but able to speak full sentences. Abdomen/GI: Soft, nontender Male : Indwelling [place] catheter in place, less than 100 mL of cloudy urine in bag, sediment present in catheter and catheter appears slimy at insertion point Neuro: Awake and alert, GCS 15 09:34 ECG was reviewed by the Attending Physician. rn Vital Signs: 08:22 BP 140 / 100; Pulse 105; Resp 20; Temp 97.3; Pulse Ox 94% ; Weight 163.29 kg; Height 6 ph ft. 2 in. ; 09:26 BP 146 / 92; Pulse 109; Resp 20; Temp 98.4; Pulse Ox 92% on R/A; ph 10:23 BP 124 / 94; Pulse 100; Resp 20; Pulse Ox 97% on R/A; ph 12:00 BP 149 / 93; Pulse 95; Resp 20; Temp 98.2; Pulse Ox 94% on R/A; ph 13:21 BP 158 / 100; Pulse 97; Resp 15; Pulse Ox 93% ; bp 08:22 Body Mass Index 46.22 (163.29 kg, 187.96 cm) ph MDM: 08:22 Medical Screening Exam initiated rn 10:51 Differential diagnosis: UTI, Kidney stone, urosepsis. Data reviewed: vital signs, rn nurses notes, lab test result(s), radiologic studies, CT scan, and as a result, I will admit patient. Consideration of Admission/Observation Patient was admitted/placed on observation. Escalation of care including admission/observation considered. Independent interpretation of the following test(s) in the Emergency Department X-Ray: My interpretation is Patient with 3 mm proximal left ureteral stone noted on CT imaging, also with urosepsis. Blood pressure currently 149/89 with a heart rate of 98 bpm. Initiated transfer to [place] given we do not have urology consultation at this hospital.. circulator: rate is 98 beats/min, Rhythm is normal sinus rhythm, regular, with no ectopy, Interpretation: normal rate, normal rhythm. Independent interpretation of the following test(s) in the Emergency Department Independent interpretation of the following test(s) in the Emergency Department X-Ray: My interpretation is Chest x-ray image shows right lower lobe infiltrate per my interpretation. CT Scan: My interpretation is CT abdomen pelvis images negative for acute pyelonephritis or free air per my interpretation. Care significantly affected by the following chronic conditions: Diabetes, Hypertension. Counseling: I had a detailed discussion with the patient and/or guardian regarding the historical points, exam findings, and any diagnostic results supporting the discharge/admit diagnosis, lab results, radiology results, the need for further work-up and treatment in the hospital, the need to transfer to another facility, for higher level of care, [facility] does not immediately have the required specialist. Response to treatment: the patient's symptoms have mildly improved after treatment, and as a result, I will admit patient. 01/16 08:34 Order name: BNP; Complete Time: 10:09 rn 01/16 08:34 Order name: Blood Culture Adult (2) rn 01/16 08:34 Order name: CBC with Diff; Complete Time: 10:46 rn 01/16 08:34 Order name: CMP; Complete Time: 10: rn 01/16 08:34 Order name: Lactate w/ 2H reflex if indic.; Complete Time: 10: rn 01/16 08:34 Order name: Protime (+inr); Complete Time: 10: rn 01/16 08:34 Order name: Ptt, Activated; Complete Time: 10: rn 01/16 08:34 Order name: Troponin HS; Complete Time: 10: rn 01/16 08:34 Order name: UA Rfx Renato Cult if indicated; Complete Time: 10: rn 01/16 09:40 Order name: CBC Smear Scan; Complete Time: 10:46 EDMA 01/16 09:51 Order name: Urine Culture EDMA 01/16 10:05 Order name: Ghost Lactate-NO COLLECT Timer; Complete Time: 13:03 EDMA 01/16 13:03 Order name: Lactate Sepsis 2 HR Follow-up EDMA 01/16 08:34 Order name: Chest Single View XRAY; Complete Time: 10:46 rn 01/16 08:34 Order name: CT Abd/Pelvis - IV Contrast Only; Complete Time: 10:46 rn 01/16 08:34 Order name: EKG; Complete Time: 08:35 rn 01/16 08:34 Order name: Accucheck; Complete Time: 08:35 rn 01/16 08:34 Order name: Cardiac monitoring; Complete Time: 09:37 rn 01/16 08:34 Order name: EKG - Nurse/Tech; Complete Time: 09:28 rn 01/16 08:34 Order name: IV Saline Lock - Large Bore; Complete Time: 09:23 rn 01/16 08:34 Order name: Labs collected and sent; Complete Time: 09:23 rn 01/16 08:34 Order name: O2 Per Protocol; Complete Time: 08:34 rn 01/16 08:34 Order name: O2 Sat Monitoring; Complete Time: 08:34 rn 01/16 08:34 Order name: Vital Signs; Complete Time: 08:34 rn EC:34 Rate is 109 beats/min. Rhythm is regular. QRS [place] is Normal. NM interval is normal. QT rn interval is normal. No Q waves. T waves are Normal. No ST changes noted. Clinical impression: Sinus tachycardia. Interpreted by me. Reviewed by me. Administered Medications: 09:20 Drug: NS 0.9% IV 1000 ml IV at 1000 ml once; to be given as a bolus over 60 minutes cc6 Route: IV; Rate: 1000 ml; Site: right antecubital; 10:30 Follow up: Response: No adverse reaction; IV Status: Completed infusion; IV Intake: ph 1000ml 10:25 Drug: Rocephin IV 1 grams IV at calculated rate once; Given slow IV push per pharmacy ph instructions Route: IV; Rate: calculated rate; Site: right antecubital; 11:23 Follow up: Response: No adverse reaction; IV Status: Completed infusion ph 11:22 Drug: Flomax PO 0.4 mg PO once Route: PO; ph 11:23 Follow up: Response: No adverse reaction ph 11:22 Drug: Magnesium Sulfate IVPB 1 grams IVPB once over 1 hrs Route: IVPB; Infused Over: 1 ph hrs; Site: right antecubital; 13:22 Follow up: IV Status: Completed infusion bp Disposition Summary: 01/16/25 10:56 Transfer Ordered Notes: Transfer Location: [facility] rn Reason: Higher level of care rn Condition: Stable rn Problem: new rn Symptoms: have improved rn Accepting Physician: (01/16/25 13:57) Diagnosis - Urosepsis rn - Calculus of ureter rn Forms: - Medication Reconciliation Form rn - SBAR form sports broadcasting internship time excluding procedures: 10:55 Critical care time: Bedside Care: 30 minutes, Consultation: 5 minutes. Total time: 35 rn minutes Signatures: Dispatcher [employer] EDMS Wilder Gardner MD MD rn Hall, Patricia RN RN ph Julia Smith, RN RN Aiden Lovett RN bp Corrections: (The following items were deleted from the chart) 08:35 08:35 PROBNP+C.LAB.BRZ ordered. EDMS EDMS 08:35 08:35 BLOOD CULTURE*+BA.LAB.BRZ ordered. EDMS EDMS 08:35 08:35 CBC+H.LAB.BRZ ordered. EDMS EDMS 08:35 08:35 COMPREHENSIVE METABOLIC PANEL+C.LAB.BRZ ordered. EDMS EDMS 08:35 08:35 LACTATE+C.LAB.BRZ ordered. EDMS EDMS 08:35 08:35 PROTIME (+INR)+COAG.LAB.BRZ ordered. EDMS EDMS 08:35 08:35 PTT, ACTIVATED+COAG.LAB.BRZ ordered. EDMS EDMS 08:35 08:35 Troponin High Sensitivity+C.LAB.BRZ ordered. EDMS EDMS 08:35 08:35 UA Rfx Renato Cult if indicated+U.LAB.BRZ ordered. EDMS EDMS 08:43 08:40 Patient reports decreased urinary production or output. Does not feel like rn catheter is blocked. Patient states flushes catheter nightly and is getting back what he puts in. No fever or chills but reports generalized malaise. Reports abdominal pain with nausea but no vomiting. No diarrhea. No blood in stool.. rn 13:57 10:56 Dr. yarbrough ph
[2025-01-16] MEDS ORDERED: MAGNESIUM SULFATE 1 gm IVPB 1 GM/100 ML BAG IV ONE (11:06)
[2025-01-16] MEDS ORDERED: TAMSULOSIN 0.4 MG SR CAP ONE (11:06)
[2025-01-16 14:24] VITALS: TEMP 98.2
[2025-01-16 14:26] VITALS: BP 158/100; O2SAT 93
== END 2025-01-16 13:57 ==
LOC: ER 08:19
DX: N20.1 Calculus of ureter (principal); R10.84 Generalized abdominal pain; R11.0 Nausea; R53.81 Other malaise
CPT/HCPCS: 96365; 96361; 93005; 87040 ×2; 87088; 85025; 81001; 87086; 36415; 85610; 83605 ×2; 85730; 87077; 87186; 84484; 80053; 83880; 74177; 71045; 51702; 99285; 96366; Q9967; J3475; J7030; J0696